=== PATIENT | female | born 1975 | race Caucasian/White ===

== ENCOUNTER 2019-04-23 11:52 | Emergency (ER) | payer MEDICAID ==
[~2019-04-23] VITALS: Ht 152.4 cm; Wt 68.0 kg
[2019-04-23 12:20] VITALS: BP 142/90
--- NOTE | 2019-04-23 12:23 | NUR ---
TRIAGE COMPLETE. VSS. RETURNED TO LOBBY TO WAIT FOR BED IN ED.
--- NOTE | 2019-04-23 12:23 | NUR ---
Tom villanueva in ED - 04/23/19 at 1223 by ANNE MIGRAINE X 15 DAYS WITH N/V, BLURRY VISION. NO RELIEF WITH OTC ADVIL.
--- NOTE | 2019-04-23 13:33 | NUR ---
Patient ambulated to chair B with family. RN evaluating patient.
--- NOTE | 2019-04-23 13:38 | NUR ---
43/F TO ED WITH MIGRAINE HEADACHE X 15 DAYS. PT REPORTS TAKING OTC ADVIL WITH MINIMAL RELIEF. REPORTS SIMILAR SYMPTOMS PREVIOUS MIGRAINES IN THE PAST. +BLURRED VISION. +NOISE SENSITIVITY. NO APPARENT SIGNS OF DISTRESS. IN FAST TRACK CHAIR FOR MSE.
--- NOTE | 2019-04-23 13:51 | NUR ---
Dr. Hernandez is evaluating the patient.
[2019-04-23] MEDS: SUMAtriptan 6 MG/0.5 ML VIAL SUBQ ONE (14:43)
[2019-04-23 15:19] LABS: APPEARANCE,URINE CLEAR (CLEAR); BILIRUBIN,URINE NEGATIVE (NEGATIVE); BLOOD, URINE NEGATIVE (NEGATIVE); COLOR,URINE YELLOW (YELLOW); LEUKOCYTE ESTERASE ,URINE 1+ (NEGATIVE); NITRITE, URINE NEGATIVE (NEGATIVE); PH,URINE 7.5 (5.0-9.0); UGLUCOSE NEGATIVE (NEGATIVE)
[2019-04-23 15:41] LABS: RBC,URINE 0-5 /HPF (0-5)
[2019-04-23 15:42] LABS: HYALINE CASTS, URINE 0-10 /LPF (None Seen)
--- NOTE | 2019-04-23 16:16 | NUR ---
Patient discharged BY DR ROJAS. Written and verbal after care instructions given and explained. Patient alert, oriented and verbalized understanding of instructions. Ambulatory with steady gait. All questions addressed prior to discharge. ID band removed. Patient advised to follow up with PMD. Rx of MACROBID AND NAPROSYN given. Patient educated on indication of medication including possible reaction and side effects. Opportunity to ask questions provided and answered.
[2019-04-23 16:27] VITALS: BP 142/90
--- NOTE | 2019-04-26 17:24 | NUR ---
LATE ENTRY-- POSITIVE URINE CULTURE RESULTS SHOWN TO DR HERNANDEZ. NO NEW ORDERS RECIEVED.
== END 2019-04-23 16:15 | disposition home or self-care (01) ==
LOC: MED 11:52
DX: N39.0 Urinary tract infection, site not specified (principal)
CPT/HCPCS: 81001; 87086; 87186; 96372; 99283; J3030

== ENCOUNTER 2020-07-27 11:28 | Emergency (ER) | payer MEDICAID ==
[~2020-07-27] VITALS: Ht 154.9 cm; Wt 68.0 kg
[2020-07-27 11:34] VITALS: BP 152/94
--- NOTE | 2020-07-27 11:39 | NUR ---
PT AMBULATED TO BED 2.
--- NOTE | 2020-07-27 11:43 | NUR ---
44 Y/O FEMALE C/O GENERALIZED BODY RASH [id number]. PT STATES ITCHING THROUGHOUT BODY, DENIES N/V, DENIES FEVER/CHILLS. PT DENIES ANY NEW BODY LOTIONS, DIET CHANGES. PT APPLIED TOPICAL HYDROCORTISONE WITH NO RELIEF. PMH: HTN NKA
--- NOTE | 2020-07-27 12:18 | NUR ---
Dr. Fletcher at pt bedside for further evaluation.
[2020-07-27] MEDS ORDERED: CALAMINE/ZINC OXIDE 8% 118 ML BTL TP ONE (12:25)
[2020-07-27] MEDS ORDERED: DEXAMETHASONE 10 MG/ML VIAL IM ONE (12:25)
--- NOTE | 2020-07-27 12:33 | NUR ---
cardiac technologist at pt bedside.
[2020-07-27] MEDS ORDERED: IBUP-1842 PO (13:18)
[2020-07-27] MEDS ORDERED: ACET-9882 PO (13:18)
[2020-07-27] MEDS ORDERED: PRED20TA5 PO (13:18)
[2020-07-27] MEDS ORDERED: CALA180L19 TP (13:18)
--- NOTE | 2020-07-27 13:26 | NUR ---
APPLIED FINGER SPLINT TO RIGHT 5TH DIGIT WITHOUT ANY ISSUES
--- NOTE | 2020-07-27 13:36 | NUR ---
Patient discharged with v/s stable. Written and verbal after care instructions given and explained. Patient alert, oriented and verbalized understanding of instructions. Ambulatory with steady gait. All questions addressed prior to discharge. ID band removed. Patient advised to follow up with PMD. Rx of IBUPROFEN 400MG PO Q6H, ACETAMINOPHEN 500MG PO Q6H, CALAMINE TOPICAL TID, AND PREDNISONE 20MG FOR RASH X3DAYS given. Patient educated on indication of medication including possible reaction and side effects. Opportunity to ask questions provided and answered.
== END 2020-07-27 13:35 | disposition home or self-care (01) ==
LOC: MED 11:28
DX: R21 Rash and other nonspecific skin eruption (principal); M20.011 Mallet finger of right finger(s); I10 Essential (primary) hypertension
CPT/HCPCS: 29130; 73140; 96372; 99283; J1100

== ENCOUNTER 2021-03-08 09:46 | Emergency (ER) | payer MEDICAID ==
[~2021-03-08] VITALS: Ht 152.4 cm; Wt 63.0 kg
[~2021-03-08 09:46] MED LIST: ACET-9882 PO; CALA180L19 TP; IBUP-1842 PO; PRED20TA5 PO
--- NOTE | 2021-03-08 10:06 | NUR ---
PT AMBULATED TO BED 7
--- NOTE | 2021-03-08 10:12 | NUR ---
DR LAMEBRT AT BEDSIDE EVALUATING PT
--- NOTE | 2021-03-08 10:17 | NUR ---
45/F BIB SELF WITH C/O RIGHT EAR PAIN X10 DAYS. PATIENT REPORTS 9/10 SHARP CONSTANT PAIN THAT SHE STATES HAS BEEN RADIATING TO HER LEFT EAR, NOSE AND DOWN TO HER THROAT. PATIENT ALSO C/O DRY COUGH AT NIGHT, DENIES CP, SOB, FEVER OR CHILLS. REPORTS TAKING NAPROSYN AT HOME WITH MILD RELIEF.
[2021-03-08] MEDS ORDERED: COROTSOL RIGHT EAR (10:32)
[2021-03-08] MEDS ORDERED: CHLO-1090 PO (10:32)
[2021-03-08] MEDS ORDERED: PRED20TA5 PO (10:32)
--- NOTE | 2021-03-08 10:40 | NUR ---
Patient discharged with v/s stable. Written and verbal after care instructions ABOUT OTITIS EXTERNA AND COUGH given and explained. Patient alert, oriented and verbalized understanding of instructions. Ambulatory with to car. All questions addressed prior to discharge. ID band removed. Patient advised to follow up with PMD. Rx of CORICIDIN HBP COUGH AND COLD TAB, CORTISPORIN OTIC SOLUTION, AND PREDNISONE given. Patient educated on indication of medication including possible reaction and side effects. Opportunity to ask questions provided and answered.
== END 2021-03-08 10:40 | disposition home or self-care (01) ==
LOC: MED 09:46
DX: H60.91 Unspecified otitis externa, right ear (principal); I10 Essential (primary) hypertension; Z79.899 Other long term (current) drug therapy
CPT/HCPCS: 81002; 81025; 99283